=== PATIENT | male | born 1945 | race Caucasian/White ===

== ENCOUNTER 2020-08-21 10:32 | Day surgery (SDC) | payer MEDICARE, OTHER ==
[2020-08-21] MEDS ORDERED: Xylocaine-Mpf 2% 5 Ml Vial IJ ONE (10:33)
[2020-08-21] MEDS ORDERED: Depo-Medrol 40 MG/ML IM ONE (10:33)
--- NOTE | 2020-08-21 14:14 | XRAY ---
Indication: Bilateral L4-S1 MBB. Intraoperative fluoroscopy provided for 21 seconds. Single digital spot image submitted for interpretation demonstrates posterior needle tips projecting over the expected left and right L4-S1 nerve roots. Correlate with intraoperative findings and report. Incidental L4-L5 spinous process fusion hardware.
--- NOTE | 2020-08-21 14:16 | XRAY ---
21 seconds fluoroscopy time in surgery for L4-S1 bilateral MBB.
[2020-08-21] MEDS ORDERED: Lactated Ringers 1,000 ML IV ONE (16:19)
== END 2020-08-21 12:46 | disposition home or self-care (01) ==
LOC: SDC-PAIN 10:32
PROVIDERS: ATTEND Psychiatry & Neurology Pain Medicine
DX: M47.816 Spondylosis without myelopathy or radiculopathy, lumbar region (principal); I10 Essential (primary) hypertension; E03.9 Hypothyroidism, unspecified; I48.91 Unspecified atrial fibrillation; F41.8 Other specified anxiety disorders; Z79.899 Other long term (current) drug therapy; Z79.01 Long term (current) use of anticoagulants
CPT/HCPCS: 64493; 64494; 72020; 77002; J1030

== ENCOUNTER 2020-09-18 08:36 | Day surgery (SDC) | payer MEDICARE, OTHER ==
[2020-09-18] MEDS ORDERED: BUPIVACAINE 0.5% VIAL IJ ONE (08:37)
[2020-09-18] MEDS ORDERED: Depo-Medrol 40 MG/ML IM ONE (08:37)
[2020-09-18] MEDS ORDERED: DIPRIVAN 200 MG/20 ML IV ONE (09:13)
--- NOTE | 2020-09-18 10:06 | XRAY ---
Indication: Bilateral L4-S1 MBB. Intraoperative fluoroscopy provided for 21 seconds. Single digital spot image submitted for interpretation demonstrates posterior needle tips projecting over the expected left and right L4-S1 nerve roots. Correlate with intraoperative findings/report. Incidental L4-L5 spinous process fixation hardware.
--- NOTE | 2020-09-18 10:08 | XRAY ---
21 seconds fluoroscopy time in surgery for bilateral L4-L5 MBB.
[2020-09-18] MEDS ORDERED: Lactated Ringers 1,000 ML IV ONE (16:13)
== END 2020-09-18 09:42 | disposition home or self-care (01) ==
LOC: SDC-PAIN 08:36
PROVIDERS: ATTEND Psychiatry & Neurology Pain Medicine
DX: M47.816 Spondylosis without myelopathy or radiculopathy, lumbar region (principal); E03.9 Hypothyroidism, unspecified; I10 Essential (primary) hypertension; I48.91 Unspecified atrial fibrillation; F41.8 Other specified anxiety disorders; Z79.899 Other long term (current) drug therapy
CPT/HCPCS: 64493; 64494; 72100; 77002; J1030; J2704

== ENCOUNTER 2020-10-16 09:01 | Day surgery (SDC) | payer MEDICARE, OTHER ==
[2020-10-16] MEDS ORDERED: BUPIVACAINE 0.5% VIAL IJ ONE (09:02)
[2020-10-16] MEDS ORDERED: Xylocaine 1% Vial 30 ML PF IJ ONE (09:02)
[2020-10-16] MEDS ORDERED: Depo-Medrol 40 MG/ML IM ONE (09:02)
[2020-10-16] MEDS ORDERED: DIPRIVAN 200 MG/20 ML IV ONE (10:36)
[2020-10-16] MEDS ORDERED: Lactated Ringers 1,000 ML IV ONE (16:28)
--- NOTE | 2020-10-16 17:49 | XRAY ---
31 seconds of fluoroscopy was used in surgery for a left L4-L5, L5-S1 RFA.
== END 2020-10-16 11:03 | disposition home or self-care (01) ==
LOC: SDC-PAIN 09:01
PROVIDERS: ATTEND Psychiatry & Neurology Pain Medicine
DX: M47.816 Spondylosis without myelopathy or radiculopathy, lumbar region (principal); I10 Essential (primary) hypertension; E03.9 Hypothyroidism, unspecified; I48.91 Unspecified atrial fibrillation; F41.8 Other specified anxiety disorders; Z79.899 Other long term (current) drug therapy
CPT/HCPCS: 64635; 64636; 72100; 77002; 99100; J1030; J2001; J2704

== ENCOUNTER 2020-10-23 12:43 | Day surgery (SDC) | payer MEDICARE, OTHER ==
[2020-10-23] MEDS ORDERED: Depo-Medrol 40 MG/ML IM ONE (12:44)
[2020-10-23] MEDS ORDERED: Xylocaine 1% Vial 30 ML PF IJ ONE (12:44)
[2020-10-23] MEDS ORDERED: BUPIVACAINE 0.5% VIAL IJ ONE (12:44)
[2020-10-23] MEDS ORDERED: DIPRIVAN 200 MG/20 ML IV ONE ×2 (14:07)
[2020-10-23] MEDS ORDERED: TRANDATE 20 MG/4 ML SYRINGE IV ONE (14:08)
--- NOTE | 2020-10-23 15:10 | XRAY ---
Indication: Right L4-S1 RFA. Intraoperative fluoroscopy provided for 47 seconds. 3 digital spot images submitted for interpretation demonstrates posterior needle tips projecting over the expected right L4-S1 nerve roots. Small amount of contrast injected for needle tip placement. Correlate with intraoperative findings/report. Incidental L4-L5 posterior spinous process fusion hardware.
[2020-10-23] MEDS ORDERED: Lactated Ringers 1,000 ML IV ONE (15:30)
--- NOTE | 2020-10-23 16:26 | XRAY ---
47 seconds fluoroscopy time in surgery for right L4-S1 RFA.
== END 2020-10-23 14:34 | disposition home or self-care (01) ==
LOC: SDC-PAIN 12:43
PROVIDERS: ATTEND Psychiatry & Neurology Pain Medicine
DX: M47.816 Spondylosis without myelopathy or radiculopathy, lumbar region (principal); I10 Essential (primary) hypertension; E03.9 Hypothyroidism, unspecified; I48.91 Unspecified atrial fibrillation; Z79.01 Long term (current) use of anticoagulants; Z79.899 Other long term (current) drug therapy
CPT/HCPCS: 64635; 64636; 72100; 77002; 99100; J1030; J2001; J2704

== ENCOUNTER 2021-05-22 08:38 | Day surgery (SDC) | payer MEDICARE, OTHER ==
[2021-05-22] MEDS ORDERED: BUPIVACAINE 0.5% VIAL IJ ONE (08:39)
[2021-05-22] MEDS ORDERED: Depo-Medrol 40 MG/ML IM ONE (08:39)
[2021-05-22] MEDS ORDERED: Lactated Ringers 1,000 ML IV ONE (10:12)
[2021-05-22] MEDS ORDERED: DIPRIVAN 200 MG/20 ML IV ONE (10:20)
--- NOTE | 2021-05-22 11:56 | XRAY ---
17 seconds fluoroscopy time in surgery for injections of both SI joints.
--- NOTE | 2021-05-22 12:17 | XRAY ---
Indication: Bilateral SI joint injections. Intraoperative fluoroscopy provided for 17 seconds. 4 digital spot images submitted for interpretation demonstrates posterior needle tip projecting over the inferior left and right SI joint. Correlate with intraoperative findings/report.
== END 2021-05-22 10:50 | disposition home or self-care (01) ==
LOC: SDC-PAIN 08:38
PROVIDERS: ATTEND Psychiatry & Neurology Pain Medicine
DX: M46.1 Sacroiliitis, not elsewhere classified (principal); I10 Essential (primary) hypertension; Z79.899 Other long term (current) drug therapy
CPT/HCPCS: 27096; 72202; 77002; G0260; 99100; J1030; J2704

== ENCOUNTER 2021-07-02 06:21 | Day surgery (SDC) | payer MEDICARE, OTHER ==
[2021-07-02] MEDS ORDERED: Depo-Medrol 40 MG/ML IM ONE (06:22)
[2021-07-02] MEDS ORDERED: BUPIVACAINE 0.5% VIAL IJ ONE (06:22)
[2021-07-02] MEDS ORDERED: DIPRIVAN 200 MG/20 ML IV ONE (08:25)
--- NOTE | 2021-07-02 10:02 | XRAY ---
Indication: Bilateral SI joint injection. Intraoperative fluoroscopy provided for 31 seconds. 4 digital spot image submitted for interpretation demonstrates posterior needle tip projecting over the inferior left and right SI joint. Correlate with intraoperative findings/report.
[2021-07-02] MEDS ORDERED: Lactated Ringers 1,000 ML IV ONE (10:13)
--- NOTE | 2021-07-02 10:30 | XRAY ---
31 seconds of fluoroscopy was used in surgery for bilateral SI joint injections.
== END 2021-07-02 08:40 | disposition home or self-care (01) ==
LOC: SDC-PAIN 06:21
PROVIDERS: ATTEND Psychiatry & Neurology Pain Medicine
DX: M46.1 Sacroiliitis, not elsewhere classified (principal); I10 Essential (primary) hypertension; Z79.899 Other long term (current) drug therapy
CPT/HCPCS: 27096; 72202; 77002; G0260; 99100; J1030; J2704

== ENCOUNTER 2021-07-31 08:36 | Day surgery (SDC) | payer MEDICARE, OTHER ==
[2021-07-31] MEDS ORDERED: BUPIVACAINE 0.5% VIAL IJ ONE (08:37)
[2021-07-31] MEDS ORDERED: Xylocaine 1% Vial 30 ML PF IJ ONE (08:37)
[2021-07-31] MEDS ORDERED: Depo-Medrol 40 MG/ML IM ONE (08:37)
[2021-07-31] MEDS ORDERED: Lactated Ringers 1,000 ML IV ONE (10:29)
[2021-07-31] MEDS ORDERED: DIPRIVAN 200 MG/20 ML IV ONE (10:31)
--- NOTE | 2021-08-01 09:46 | XRAY ---
Indication: Right SI injection. Intraoperative fluoroscopy provided for 36 seconds. 3 digital spot image submitted for interpretation demonstrates 4 posterior needle tip projecting just medial to the right SI joint. Correlate with intraoperative findings/report.
--- NOTE | 2021-08-01 09:57 | XRAY ---
36 seconds of fluoroscopy was used in surgery for a right SI joint RFA.
== END 2021-07-31 11:05 | disposition home or self-care (01) ==
LOC: SDC-PAIN 08:36
PROVIDERS: ATTEND Psychiatry & Neurology Pain Medicine
DX: M47.816 Spondylosis without myelopathy or radiculopathy, lumbar region (principal); I10 Essential (primary) hypertension; Z79.899 Other long term (current) drug therapy
CPT/HCPCS: 64625; 72202; 77002; 99100; J1030; J2001; J2704

== ENCOUNTER 2021-08-13 10:17 | Day surgery (SDC) | payer MEDICARE, OTHER ==
[2021-08-13] MEDS ORDERED: BUPIVACAINE 0.5% VIAL IJ ONE (13:10)
[2021-08-13] MEDS ORDERED: Xylocaine 1% Vial 30 ML PF IJ ONE (13:10)
[2021-08-13] MEDS ORDERED: Depo-Medrol 40 MG/ML IM ONE (13:10)
[2021-08-13] MEDS ORDERED: Lactated Ringers 1,000 ML IV ONE (13:50)
--- NOTE | 2021-08-13 15:15 | XRAY ---
Indication: Left SI RFA. Intraoperative fluoroscopy provided for 39 seconds. 2 digital spot image submitted for interpretation demonstrates posterior needle tips projecting over the expected left S1-S4 nerve roots. Correlate with intraoperative findings/report. Incidental partially visualized L4-L5 spinous process fusion hardware.
--- NOTE | 2021-08-13 15:24 | XRAY ---
39 seconds fluoroscopy time in surgery for left sacroiliac RFA.
== END 2021-08-13 14:15 | disposition home or self-care (01) ==
LOC: SDC-PAIN 10:17
PROVIDERS: ATTEND Psychiatry & Neurology Pain Medicine
DX: M46.1 Sacroiliitis, not elsewhere classified (principal); I10 Essential (primary) hypertension; Z79.899 Other long term (current) drug therapy
CPT/HCPCS: 64625; 72100; 77002; J1030; J2001

== ENCOUNTER 2021-12-24 12:43 | Day surgery (SDC) | payer MEDICARE, OTHER ==
[2021-12-24] MEDS ORDERED: Marcaine Mpf 0.5% Vial 30 Ml IJ ONE (12:44)
[2021-12-24] MEDS ORDERED: XYLOCAINE-MPF 1% 5ML SDV IJ ONE (12:44)
[2021-12-24] MEDS ORDERED: Depo-Medrol 40 MG/ML IM ONE (12:44)
--- NOTE | 2021-12-24 19:27 | XRAY ---
Indication: Left L4-S1 RFA. Intraoperative fluoroscopy provided for 29 seconds. 4 digital spot image submitted for interpretation demonstrates posterior needle tips projecting over the expected left L4-S1 nerve roots. Correlate with intraoperative findings/report. Incidental L4-L5 spinous processes fusion hardware.
--- NOTE | 2021-12-25 08:28 | XRAY ---
29 seconds of fluoroscopy was used in surgery for a left L4-S1 RFA.
== END 2021-12-24 16:19 | disposition home or self-care (01) ==
LOC: SDC-PAIN 12:43
PROVIDERS: ATTEND Psychiatry & Neurology Pain Medicine
DX: M47.817 Spondylosis without myelopathy or radiculopathy, lumbosacral region (principal); Z79.899 Other long term (current) drug therapy
CPT/HCPCS: 64635; 64636; 72100; 77002; J1030

== ENCOUNTER 2022-01-14 14:31 | Day surgery (SDC) | payer MEDICARE, OTHER ==
[2022-01-14] MEDS ORDERED: Marcaine Mpf 0.5% Vial 30 Ml IJ ONE (14:32)
[2022-01-14] MEDS ORDERED: Depo-Medrol 40 MG/ML IM ONE (14:32)
[2022-01-14] MEDS ORDERED: XYLOCAINE-MPF 1% 5ML SDV IJ ONE (14:32)
--- NOTE | 2022-01-14 19:42 | XRAY ---
Indication: Right L4-S1 RFA. Intraoperative fluoroscopy provided for 39 seconds. 4 digital spot image submitted for interpretation demonstrates posterior needle tips projecting over the expected right L4-S1 nerve roots. Correlate with intraoperative findings/report. Incidental L4-L5 spinous process fusion hardware.
--- NOTE | 2022-01-15 08:42 | XRAY ---
39 seconds of fluoroscopy was used in surgery for a right L4-S1 RFA.
== END 2022-01-14 16:55 | disposition home or self-care (01) ==
LOC: SDC-PAIN 14:31
PROVIDERS: ATTEND Psychiatry & Neurology Pain Medicine
DX: M47.816 Spondylosis without myelopathy or radiculopathy, lumbar region (principal); Z79.899 Other long term (current) drug therapy
CPT/HCPCS: 64635; 64636; 72100; 77002; J1030

== ENCOUNTER 2022-10-21 05:53 | Day surgery (SDC) | payer MEDICARE, OTHER ==
[2022-10-21] MEDS ORDERED: BUPIVACAINE 0.5% VIAL IJ ONE (05:54)
[2022-10-21] MEDS ORDERED: Depo-Medrol 40 MG/ML IM ONE (05:54)
[2022-10-21] MEDS ORDERED: LIDOCAINE HCL 1% 50 MG/5 ML VL PF IJ ONE (05:54)
--- NOTE | 2022-10-21 09:07 | XRAY ---
Indication: Bilateral SI joint injection. Intraoperative fluoroscopy provided for 15 seconds. 5 digital spot image submitted for interpretation demonstrates posterior needle tip projecting over the left and right SI joint. Correlate with intraoperative findings/report.
--- NOTE | 2022-10-21 10:28 | XRAY ---
15 seconds of fluoroscopy was used in surgery for a bilateral sacroiliac joint injection.
== END 2022-10-21 07:45 | disposition home or self-care (01) ==
LOC: SDC-PAIN 05:53
PROVIDERS: ATTEND Psychiatry & Neurology Pain Medicine
DX: M46.1 Sacroiliitis, not elsewhere classified (principal); Z79.899 Other long term (current) drug therapy
CPT/HCPCS: 27096; 72202; 77002; G0260; J1030; J2001

== ENCOUNTER 2023-01-20 15:08 | Day surgery (SDC) | payer MEDICARE, OTHER ==
[2023-01-20] MEDS ORDERED: Sodium Chloride 0.9(Preservative Free) 10 ML IJ ONE (15:09)
[2023-01-20] MEDS ORDERED: Depo-Medrol 40 MG/ML IM ONE (15:09)
[2023-01-20] MEDS ORDERED: XYLOCAINE 1% HCL 20 ML MDV IJ ONE (15:09)
[2023-01-20] MEDS ORDERED: Lactated Ringers 1,000 ML IV ONE (18:05)
--- NOTE | 2023-01-20 20:53 | XRAY ---
Indication: Lumbar RALF. Intraoperative fluoroscopy provided for 25 seconds. 3 digital spot images submitted for interpretation demonstrates posterior needle tip projecting over posterior to lumbosacral junction interspace. Small amount of contrast injected for needle tip placement. Correlate with intraoperative findings/report. Incidental L4-L5 spinous process fusion hardware.
--- NOTE | 2023-01-21 09:54 | XRAY ---
25 seconds of fluoroscopy was used in surgery for a lumbar RALF.
== END 2023-01-20 18:10 | disposition home or self-care (01) ==
LOC: SDC-PAIN 15:08
PROVIDERS: ATTEND Psychiatry & Neurology Pain Medicine
DX: M54.16 Radiculopathy, lumbar region (principal); R73.03 Prediabetes; Z79.899 Other long term (current) drug therapy
CPT/HCPCS: 62323; 72100; 77003; 82947; J1030; Q9966

== ENCOUNTER 2023-06-28 10:40 | Day surgery (SDC) | payer MEDICARE, OTHER ==
--- NOTE | 2023-06-28 09:33 | HP ---
DATE OF SURGERY: 06/28/2023 HISTORY OF PRESENT ILLNESS: The patient is a 78-year-old gentleman had some hard stools, small amount of bleeding when he wipes at times. He did lose 80 pounds on purpose with diet and exercise. History of some rectal bleeding. He is in need of colonoscopy possible internal hemorrhoid banding. PAST MEDICAL HISTORY: Hypertension, hyperlipidemia, hypothyroidism, diabetes mellitus type II, arthritis. PAST SURGICAL HISTORY: Cataract lens. T&A. Appendectomy. Laminectomy. Finger fracture. Wrist fracture. Arm fracture. Back surgery. MEDICATIONS: Metformin, Zetia, liothyronine, furosemide, lisinopril, nifedipine, Xarelto. ALLERGIES: NKDA. FAMILY HISTORY: Negative in regards to this problem. SOCIAL HISTORY: Former smoker. Occasional alcohol use. REVIEW OF SYSTEMS: Twelve systems reviewed pertinent for as noted above and per admission assessment. No chest pain or palpitations. Other systems negative or noncontributory as above and per preadmission questionnaire. PHYSICAL EXAMINATION: Height 6 feet 1 inch. GENERAL: No acute distress. HEENT: Sclerae nonicteric. EOMI. Oral mucous membranes moist. NECK: No JVD. CHEST: Equal excursion, nonlabored breathing. CVS: Regular rate and rhythm. ABDOMEN: Soft, nontender. EXTREMITIES: No cyanosis or edema. NEURO: Alert, oriented, moving extremities symmetrically. RECTAL: Deferred timed to endoscopy exam. PSYCH: Appropriate mood and affect. SKIN: Dry. IMPRESSION: Question of rectal bleeding, needs colonoscopy possible internal hemorrhoid banding. Otherwise increased bulky soft stool, avoid straining at time of bowel movements. Risk of endoscopy and hemorrhoid banding explained in detail including but not limited to risk of bleeding or infection, risk of bowel injury or perforation possibly requiring further procedure, risk of missed or nondiagnosis or incomplete exam possibly requiring barium enema, other studies or procedures, risk of anesthesia or sedation, risk of bowel prep but not limited to. Regarding if hemorrhoid banding occurred, general risk of bleeding or infection, risk of aches, pain or pressure. Remote risk of major infection possibly requiring other procedures or diversion, possible no improvement or progression of hemorrhoid disease possibly requiring other procedures if present. He understands the importance of adding fiber to his diet, try to drink plenty of fluids to titrate soft bulky stools and avoid straining at the time of bowel movements. Will proceed with colonoscopy possible internal hemorrhoid banding as an outpatient. Otherwise, continue medication for his heart disease, hypertension, diabetes, lipids and thyroid. Will hold his blood thinner preoperative.
[2023-06-28] MEDS ORDERED: Lactated Ringers 1,000 ML IV SCH (11:00)
[2023-06-28 11:19] VITALS: RESP 16
[2023-06-28] MEDS ORDERED: Lactated Ringers 1,000 ML IV ONE (11:22)
[2023-06-28] MEDS ORDERED: DIPRIVAN 200 MG/20 ML IV ONE ×3 (12:58→13:36)
[2023-06-28] MEDS ORDERED: Xylocaine-Mpf 2% 5 Ml Vial ONE (12:58)
[2023-06-28] MEDS ORDERED: Versed 2 MG/2 ML Injection ONE (12:59)
[2023-06-28] MEDS ORDERED: ROBINUL ONE (13:13)
[2023-06-28 14:51] VITALS: BP 127/86; PULSE 45; TEMP 96.8; O2SAT 98
--- NOTE | 2023-06-28 15:24 | OP ---
SURGERY DATE/TIME: 06/28/2023 1303 PREOPERATIVE DIAGNOSIS: History of rectal bleeding, obesity, need for colonoscopy. POSTOPERATIVE DIAGNOSES: 1) Multiple small polyps ascending colon, transverse colon, sigmoid colon and rectum. 2) Diverticulosis left colon. 3) Limited bowel prep. 4) ASA Class III. 5) Withdrawal time approximately 16 minutes. PROCEDURES: 1) Colonoscopy to ascending colon. 2) Hot biopsy polypectomy x3 or 4. 3) Hot snare polypectomy of transverse colon polyp about 3.5 mm. 4) Hot biopsy polypectomy x2 to 3 smaller transverse colon polyps removed with hot biopsy polypectomy. 5) Hot biopsy polypectomy sigmoid colon x7. 6) Hot biopsy polypectomy rectal polyps x3. 7) Internal hemorrhoid banding x1 column (right posterior). SURGEON: Dr. Lopez Hurst. ANESTHESIA: MAC. ESTIMATED BLOOD LOSS: Minimal. INDICATIONS: As noted above. Risks and benefits explained in detail but not limited to and consent obtained. DESCRIPTION OF PROCEDURE AND FINDINGS: The patient is taken to the endoscopy room. MAC anesthesia induced. After official time out and no disagreement with planned procedure, digital rectal exam revealed some small internal and external hemorrhoids. He did have a little bit of a raw spot that was maybe a little bit on the anal skin, maybe abrasion from having hard stool not too long ago, most likely is healing and no active current bleeding. Video colonoscope inserted and passed up through the very tortuous sigmoid, descending, transverse and ascending colon. The patient lost 80 pounds with diet and exercise and he still has a very large abdomen. Despite two or three staff members pushing on his abdomen, the scope could only reach what seemed to be the proximal ascending colon on the right side, not quite reaching the cecum itself. The prep overall was very limited with a large amount of liquidy, semisolid and some solid stool limiting the exam for very small lesions. Despite trying position changes and multiple different pressure areas what seemed to be 20 to 25 minutes was not able to go to the tip of the cecum so it was elected to go ahead and order a barium test. Despite multiple position changes and external pressure. The scope was slowly and carefully withdrawn over the next 16 minutes or so. He had at least three or four polyps in the ascending colon removed with hot biopsy polypectomy. He had polyp in the transverse colon removed with hot snare polypectomy. Additional two or three smaller transverse colon polyps removed with hot biopsy polypectomy. Scope moved back to sigmoid colon. A few small possibly adenomatous looking polyps removed with hot biopsy polypectomy as well as a few that were more hyperplastic appearing. The scope is pulled back to the rectum. Another two or three small polyps removed with hot biopsy polypectomy. The patient tolerated the procedure well. It was a difficult exam given his limited bowel prep, his obesity and tortuous colon that would not allow to completely reach the cecum. Again, findings discussed with the family out in the waiting area including recommendation for outpatient barium contrast enema at some point. I will see him back in the office to go over the biopsy results. Once the colonoscopy was complete, remained in the lateral decubitus position. Half-uribe retractor carefully inserted. His hemorrhoids were not large enough in left lateral to warrant any banding. However, the right anterior or the left lateral were not large enough to warrant banding. The right posterior however was grade 2 to 3 internal hemorrhoid. Elected to go ahead and fire the band on top edge of internal hemorrhoid. Suction rv service technician carefully applied. Good tuft of tissue noted with band in position. The patient tolerated the procedure well. There were no immediate complications. It was felt he needed to continue high fiber diet to titrate soft, bulky stools, avoid straining when he does have a bowel movement and avoid constipation.
== END 2023-06-28 13:20 | disposition home or self-care (01) ==
LOC: SDC 10:40
PROVIDERS: ATTEND Surgery
DX: Z87.19 Personal history of other diseases of the digestive system (principal); E66.9 Obesity, unspecified; E11.9 Type 2 diabetes mellitus without complications; D12.3 Benign neoplasm of transverse colon; K62.1 Rectal polyp; K57.30 Diverticulosis of large intestine without perforation or abscess without bleeding; K64.4 Residual hemorrhoidal skin tags; K64.8 Other hemorrhoids
CPT/HCPCS: 82947; 93005; 99100; J2250; J2704

== ENCOUNTER 2023-10-27 13:40 | Day surgery (SDC) | payer MEDICARE, OTHER ==
[2023-10-27] MEDS ORDERED: Depo-Medrol 40 MG/ML IM ONE (13:41)
[2023-10-27] MEDS ORDERED: XYLOCAINE-MPF 1% 5ML SDV IJ ONE (13:41)
[2023-10-27] MEDS ORDERED: BUPIVACAINE 0.5% VIAL IJ ONE (13:41)
[2023-10-27] MEDS ORDERED: Lactated Ringers 1,000 ML IV ONE (15:50)
--- NOTE | 2023-10-27 17:17 | XRAY ---
Indication: Right L4-S1 RFA. Intraoperative fluoroscopy provided for 46 seconds. 3 digital spot images submitted for interpretation demonstrates posterior needle tips projecting over the expected right L4-S1 nerve roots. Correlate with intraoperative findings/report. Incidental L4-L5 spinous process fusion hardware.
--- NOTE | 2023-10-27 17:20 | XRAY ---
46 seconds of fluoroscopy was used in surgery for a right L4-S1 RFA.
== END 2023-10-27 16:57 | disposition home or self-care (01) ==
LOC: SDC-PAIN 13:40
PROVIDERS: ATTEND Psychiatry & Neurology Pain Medicine
DX: M47.816 Spondylosis without myelopathy or radiculopathy, lumbar region (principal); R73.03 Prediabetes
CPT/HCPCS: 64635; 64636; 72100; 77002; 82947; J1010

== ENCOUNTER 2023-11-24 15:29 | Day surgery (SDC) | payer MEDICARE ==
[2023-11-24] MEDS ORDERED: BUPIVACAINE 0.5% VIAL IJ ONE (15:30)
[2023-11-24] MEDS ORDERED: Depo-Medrol 40 MG/ML IM ONE (15:30)
[2023-11-24] MEDS ORDERED: XYLOCAINE-MPF 1% 5ML SDV IJ ONE (15:30)
--- NOTE | 2023-11-24 19:18 | XRAY ---
Indication: Bilateral hip injection. Intraoperative fluoroscopy provided for 40 seconds. 3 digital spot images submitted for interpretation demonstrates needle tip projecting lateral to left and right femur neck. Small amount of contrast injected for needle tip placement. Correlate with intraoperative findings/report.
--- NOTE | 2023-11-25 09:28 | XRAY ---
40 seconds of fluoroscopy was used in surgery for a bilateral intra-articular hip injection.
== END 2023-11-24 18:35 | disposition home or self-care (01) ==
LOC: SDC-PAIN 15:29
PROVIDERS: ATTEND Psychiatry & Neurology Pain Medicine
DX: M16.0 Bilateral primary osteoarthritis of hip (principal); R73.03 Prediabetes
CPT/HCPCS: 20610; 73521; 77002; 82947; J1010; Q9966

== ENCOUNTER 2024-09-06 15:36 | Day surgery (SDC) | payer MEDICARE ==
[2024-09-06] MEDS ORDERED: Depo-Medrol 40 MG/ML IM ONE (15:37)
[2024-09-06] MEDS ORDERED: LIDOCAINE HCL 1% AMPUL 5 ML IJ ONE (15:37)
[2024-09-06] MEDS ORDERED: BUPIVACAINE 0.5% VIAL IJ ONE (15:37)
--- NOTE | 2024-09-06 18:30 | XRAY ---
Indication: Bilateral SI joint injection. Intraoperative fluoroscopy provided for 22 seconds. 2 digital spot image submitted for interpretation demonstrates posterior needle tips projecting over left and right SI joints. Small amount of contrast injected for needle tip placement. Correlate with intraoperative findings/report.
--- NOTE | 2024-09-07 08:53 | XRAY ---
22 seconds of fluoroscopy used in surgery for bilateral sacroiliac joint injections.
== END 2024-09-06 18:11 | disposition home or self-care (01) ==
LOC: SDC-PAIN 15:36
PROVIDERS: ATTEND Psychiatry & Neurology Pain Medicine
DX: M46.1 Sacroiliitis, not elsewhere classified (principal); R73.03 Prediabetes
CPT/HCPCS: 27096; 72202; 82947; Q9966

== ENCOUNTER 2025-03-21 14:59 | Day surgery (SDC) | payer MEDICARE ==
[2025-03-21] MEDS ORDERED: methylPREDNISolone acetate IM ONE (15:00)
[2025-03-21] MEDS ORDERED: Sensorcaine 0.25% 10 ML IJ ONE (15:00)
[2025-03-21] MEDS ORDERED: LIDOCAINE HCL 1% 50 MG/5 ML VL IJ ONE (15:00)
--- NOTE | 2025-03-21 20:33 | XRAY ---
Indication: Bilateral SI joint injection. Intraoperative fluoroscopy provided for 18 seconds. 2 digital spot image submitted for interpretation demonstrates posterior needle tip projecting over left and right SI joint. Small amount of contrast injected for needle tip placement. Correlate with intraoperative findings/report. Incidental lower lumbar fusion hardware
--- NOTE | 2025-03-21 20:37 | XRAY ---
18 seconds of fluoroscopy were used in surgery for bilateral sacroiliac joint injections.
== END 2025-03-21 19:29 | disposition home or self-care (01) ==
LOC: SDC-PAIN 14:59
PROVIDERS: ATTEND Psychiatry & Neurology Pain Medicine
DX: M46.1 Sacroiliitis, not elsewhere classified (principal); R73.03 Prediabetes